=== PATIENT | male | born 1925 | race Caucasian/White ===

== ENCOUNTER 2016-05-25 | Outpatient (CLI) | payer MEDICARE, OTHER | END 2016-05-25 11:01 | disposition home or self-care (01) ==

== ENCOUNTER 2016-06-10 | Outpatient (CLI) | payer MEDICARE, OTHER | END 2016-06-10 13:46 | disposition home or self-care (01) ==

== ENCOUNTER 2016-07-22 10:15 | Outpatient (CLI) | payer MEDICARE, OTHER | END 2016-07-22 10:16 | disposition home or self-care (01) | DX: L98.491 Non-pressure chronic ulcer of skin of other sites limited to breakdown of skin (principal); L89.610 Pressure ulcer of right heel, unstageable; S90.822A Blister (nonthermal), left foot, initial encounter; L89.152 Pressure ulcer of sacral region, stage 2; N40.0 Benign prostatic hyperplasia without lower urinary tract symptoms; N39.0 Urinary tract infection, site not specified; Z79.2 Long term (current) use of antibiotics; I69.354 Hemiplegia and hemiparesis following cerebral infarction affecting left non-dominant side; R53.1 Weakness; R60.9 Edema, unspecified; R13.10 Dysphagia, unspecified; F03.90 Unspecified dementia, unspecified severity, without behavioral disturbance, psychotic disturbance, mood disturbance, and anxiety; R53.83 Other fatigue; Z66 Do not resuscitate; Z51.5 Encounter for palliative care ==